=== PATIENT | female | born 2000 | race American Indian/Alaskan Native ===

== ENCOUNTER 2021-10-17 06:47 | Emergency (ER) | payer SELFPAY ==
[2021-10-17 06:54] VITALS: BP 124/75
--- NOTE | 2021-10-17 08:02 | Emergency Department Report ---
ED General Adult HPI - General Chief complaint: Urogenital-Female Stated complaint: STD CHECKUP Time Seen by Provider: 10/17/21 07:24 Source: patient Mode of arrival: Ambulatory Limitations: No Limitations - History of Present Illness Initial comments: 20-year-old -[place] female patient presents with complaints of possible boil to her genital area x2 days. Patient is also requesting STI checkup. She denies any vaginal discharge, dysuria/hematuria/urinary frequency, abnormal vaginal bleeding, dyspareunia, or pelvic/abdominal pain. Patient states she is wanting to get checked because she had unprotected sex recently. No past medical history per patient. The genital lesion she states seemed to begin as a bump and now has opened up. No history of herpes per patient. She states she is otherwise feeling well - Related Data Previous Rx's Medication Instructions Recorded Last Taken Type Mupirocin [Bactroban 2% OINT] 1 applic TP TID 7 Days #1 tube 10/17/21 Unknown Rx Sulfamethoxazole/Trimethoprim 1 each PO BID 7 Days #14 tablet 10/17/21 Unknown Rx [Bactrim DS TAB] Valacyclovir HCl [Valacyclovir] 1,000 mg PO BID 7 Days #14 tablet 10/17/21 Unknown Rx Allergies Allergy/AdvReac Type Severity Reaction Status Date / Time No Known Allergies Allergy Verified 10/17/21 06:54 ED Review of Systems ROS: Stated complaint: STD CHECKUP Other details as noted in HPI Constitutional: denies: chills, fever, malaise Gastrointestinal: denies: abdominal pain, nausea, vomiting Genitourinary: denies: urgency, dysuria, frequency, hematuria, discharge, abnormal menses, dyspareunia Musculoskeletal: denies: back pain Skin: lesions Neurological: denies: numbness, paresthesias Hematological/Lymphatic: denies: swollen glands ED Past Medical Hx - Past Medical History Previous Medical History?: No - Surgical History Past Surgical History?: No - Medications Home Medications: Home Medications Medication Instructions Recorded Confirmed Last Taken Type Mupirocin [Bactroban 2% OINT] 1 applic TP TID 7 Days #1 tube 10/17/21 Unknown Rx Sulfamethoxazole/Trimethoprim 1 each PO BID 7 Days #14 tablet 10/17/21 Unknown Rx [Bactrim DS TAB] Valacyclovir HCl [Valacyclovir] 1,000 mg PO BID 7 Days #14 tablet 10/17/21 Unknown Rx ED Physical Exam - General Limitations: No Limitations General appearance: alert, in no apparent distress - Head Head exam: Present: atraumatic, normocephalic - Eye Eye exam: Present: normal appearance - Respiratory Respiratory exam: Absent: respiratory distress - Cardiovascular Cardiovascular Exam: Present: regular rate - GI/Abdominal GI/Abdominal exam: Present: soft. Absent: tenderness - Expanded Exam Expanded image: 1 - Approximately 2 cm shallow ovoid lesion noted without drainage, surrounding erythema/induration, or tenderness to palpation; there are a few scattered areas of hypopigmented skin that may be healing smaller ulcerations which are nontender and nonerythemic - Neurological Exam Neurological exam: Present: alert, oriented X3 - Psychiatric Psychiatric exam: Present: normal affect, normal mood - Skin Skin exam: Present: warm, dry, intact, normal color. Absent: rash ED Course Vital Signs 10/17/21 06:50 Temperature 98.7 F Pulse Rate 89 Respiratory 17 Rate Blood Pressure 124/75 [Right] O2 Sat by Pulse 100 Oximetry ED Medical Decision Making - Medical Decision Making 20-year-old -[place] female patient presents with complaints of possible boil to her genital area x2 days. Patient is also requesting STI checkup. She denies any vaginal discharge, dysuria/hematuria/urinary frequency, abnormal vaginal bleeding, dyspareunia, or pelvic/abdominal pain. Patient states she is wanting to get checked because she had unprotected sex recently. No past medical history per patient. The genital lesion she states seemed to begin as a bump and now has opened up. No history of herpes per patient. She states she is otherwise feeling well RPR is negative. Bactrim given for empiric treatment. Patient's vitals are within normal limits, he/she is well-appearing, and is stable for discharge home. Recommend patient follows up with his PCP in 3 to 5 days. Discussed presumptive diagnosis, care plan, signs and symptoms that should prompt immediate return to the ED with patient who verbalizes understanding Critical care attestation.: If time is entered above; I have spent that time in minutes in the direct care of this critically ill patient, excluding procedure time. ED Disposition Clinical Impression: Vaginal lesion, Herpes genitalis Disposition: 01 HOME / SELF CARE / HOMELESS Is pt being admited?: No Condition: Stable Instructions: Genital Herpes Prescriptions: Sulfamethoxazole/Trimethoprim [Bactrim DS TAB] 1 each PO BID 7 Days #14 tablet Mupirocin [Bactroban 2% OINT] 1 applic TP TID 7 Days #1 tube Valacyclovir HCl [Valacyclovir] 1,000 mg PO BID 7 Days #14 tablet Referrals: [facility] [Outside] - 3-5 Days (STD testing)
== END 2021-10-17 11:44 | disposition home or self-care (01) ==
LOC: ED 06:47
DX: A60.00 Herpesviral infection of urogenital system, unspecified (principal); N89.8 Other specified noninflammatory disorders of vagina
CPT/HCPCS: 36415; 84703; 86592; 99283